=== PATIENT | male | born 2000 | race Caucasian/White ===

== ENCOUNTER 2022-11-14 16:58 | Emergency (ER) | payer BC ==
[2022-11-14 18:04] LABS: #Basophils 0.1 10x3/uL (0.0-0.2); #Eosinphils 0.1 10x3/uL (0.0-0.5); #Monocytes 0.6 10x3/uL (0.0-1.1); #Neutrophils 4.8 10x3/uL (1.5-8.4); %Basophils 0.8 % (0.0-2.0); %Eosinophils 0.8 % (0.0-6.0); %Monocytes 7.6 % (0.0-10.0); %Neutrophils 61.7 % (40.0-75.0); Hematocrit 46.9 % (38.8-50.0); Hemoglobin 16.2 g/dL (13.5-17.5); Mean Corpuscular HGB CONC 34.5 g/dL (32.0-36.0); Mean Corpuscular Volume 86.9 fl (81.2-95.1); Mean Platelet Volume 9.5 fl (7.4-10.4); Platelet Count 328 10x3/uL (150-450); RBC Distribution Width 12.2 % (11.5-14.5); White Blood Cell (WBC) Count 7.8 10x3/uL (3.5-10.5)
[2022-11-14] MEDS ORDERED: Ketorolac Tromethamine 30 MG/ML VIAL ONE (18:16)
[2022-11-14 18:20] LABS: ALT (SGPT) 27 U/L (8-55); AST (SGOT) 19 U/L (5-34); Albumin 5.1 g/dL (3.5-5.0); Alkaline Phosphatase 64 U/L (40-110); Anion Gap 16 mmol/L (10-20); BUN (Urea Nitrogen) 14 mg/dL (8.9-20.6); Bilirubin, Total 0.6 mg/dL (0.2-1.2); Calc. Creatinine Clearance 0 mL/min (70-130); Calcium 9.7 mg/dL (7.8-10.44); Carbon Dioxide 23 mmol/L (22-29); Chloride 105 mmol/L (98-107); Estimated GFR 123; Globulin 2.3 g/dL (2.4-3.5); Glucose 91 mg/dL (70-105); Lipase 30 U/L (8-78); Protein, Total 7.4 g/dL (6.0-8.3); Sodium 140 mmol/L (136-145)
[2022-11-14 18:26] LABS: Troponin I 0.011 ng/mL (< 0.028)
== END 2022-11-14 19:00 | disposition home or self-care (01) ==
LOC: CSHERS 16:58
DX: R07.89 Other chest pain (principal)
CPT/HCPCS: 71045; 80053; 83690; 84484; 85025; 85379; 93005; 96374; J1885